=== PATIENT | female | born 1945 | race Caucasian/White ===

== ENCOUNTER 2019-05-08 17:38 | Emergency (ER) | payer MEDICARE, OTHER ==
[~2019-05-08] VITALS: Ht 160 cm; Wt 93.2 kg
[~2019-05-08 17:38] MED LIST: ADVAIR 100/501 DISK INH; ALBUTEROL0.63 MG/3 INH; BENADRYL25 MG PO; CARDIZEM30 MG PO; ELIQUIS2.5 MG PO; HYDROCODONE-APA1 TAB PO; KLONOPIN0.5 MG PO; LISINOPRIL10 MG PO; MULTIPLE VITAMI1 TA1 PO; NAPROSYN500 MG PO; NEURONTIN 400400 MG PO; OXYCODONE HCL5 MG PO; PROVENTIL HFA6.7 GM INH; PROVENTIL/2.5 MG/3 M INH; SYNTHROID150 MCG PO
[2019-05-08 17:42] VITALS: Ht 160 cm; Wt 93.2 kg
[2019-05-08] MEDS ORDERED: PLAVIX75 MG PO (17:45)
[2019-05-08] MEDS ORDERED: TRICOR145 MG PO (17:45)
[2019-05-08] MEDS ORDERED: LIPITOR40 MG PO (17:45)
[2019-05-08] MEDS ORDERED: BAYER CHEWABLE81 MG PO (17:45)
[2019-05-08] MEDS ORDERED: FISH OIL 1,0001 CA1 PO (17:46)
[2019-05-08] MEDS ORDERED: CO Q-10100 MG PO (17:46)
[2019-05-08 20:07] VITALS: BP 125/76
== END 2019-05-08 20:08 | disposition home or self-care (01) ==
LOC: D.ER 17:38
DX: S91.202A Unspecified open wound of left great toe with damage to nail, initial encounter (principal); X58.XXXA Exposure to other specified factors, initial encounter; Y93.89 Activity, other specified; Y92.89 Other specified places as the place of occurrence of the external cause

== ENCOUNTER → 2019-07-14 14:17 | Outpatient (CLI) | payer MEDICARE, OTHER ==
[2019-05-08 17:42] VITALS: BMI 36.3
[~2019-07-14 14:17] MED LIST changes: +ALBUTEROL2.5 MG/3 M INH; +ASCORBIC ACID500 MG PO; +ATARAX 25 MG TA25 MG PO; +ATROVENT 0.02%2.5 ML UPD; +BAYER CHEWABLE81 MG PO; +BUMEX2 MG PO; +CO Q-10100 MG PO; +DILTIAZEM 24HR240 M4 PO; +FISH OIL 1,0001 CA1 PO; +FLUTICASONE PRO16 GM NASAL; +HUMALOG 30100 UNITS/ SC; +KLOR-CON 1010 MEQ PO; +LANTUS SOL100 UNIT/1 SC; +LASIX40 MG PO; +LEVOXYL125 MCG PO; +LIPITOR40 MG PO; +MAGNESIUM OXID250 MG PO; +NEURONTIN600 MG PO; +PLAVIX75 MG PO; +SYMBICORT 80-10.2 GM INH; +TRICOR145 MG PO; +VITAMIN D31000 UNIT PO; +[UNRECOGNIZED DRUG - OTHER]
== END | disposition home or self-care (01) ==
LOC: D.HCCARDIO 14:00
PROVIDERS: ATTEND Internal Medicine Cardiovascular Disease
DX: I47.1 Supraventricular tachycardia (principal)

== ENCOUNTER 2019-07-20 16:33 | Emergency (ER) | payer MEDICARE, OTHER ==
[~2019-07-20] VITALS: Ht 160 cm; Wt 95.5 kg
[~2019-07-20 16:33] MED LIST changes: -ALBUTEROL2.5 MG/3 M INH; -ASCORBIC ACID500 MG PO; -ATARAX 25 MG TA25 MG PO; -ATROVENT 0.02%2.5 ML UPD; -BUMEX2 MG PO; -DILTIAZEM 24HR240 M4 PO; -FLUTICASONE PRO16 GM NASAL; -HUMALOG 30100 UNITS/ SC; -KLOR-CON 1010 MEQ PO; -LANTUS SOL100 UNIT/1 SC; -LASIX40 MG PO; -LEVOXYL125 MCG PO; -MAGNESIUM OXID250 MG PO; -NEURONTIN600 MG PO; -SYMBICORT 80-10.2 GM INH; -VITAMIN D31000 UNIT PO; -[UNRECOGNIZED DRUG - OTHER]
[2019-07-20 17:22] VITALS: Ht 160 cm; Wt 95.5 kg
[2019-07-20] MEDS ORDERED: ATARAX 25 MG TA25 MG PO (17:33)
[2019-07-20] MEDS ORDERED: CO Q-10100 MG PO (17:34)
[2019-07-20] MEDS ORDERED: LEVOXYL125 MCG PO (17:35)
[2019-07-20] MEDS ORDERED: KLOR-CON 1010 MEQ PO (17:36)
[2019-07-20] MEDS ORDERED: DILTIAZEM 24HR240 M4 PO (17:37)
[2019-07-20] MEDS ORDERED: LASIX40 MG PO (17:38)
[2019-07-20] MEDS ORDERED: NEURONTIN600 MG PO (17:38)
[2019-07-20] MEDS ORDERED: BENADRYL25 MG PO (17:39)
[2019-07-20] MEDS ORDERED: MAGNESIUM OXID250 MG PO (17:40)
[2019-07-20] MEDS ORDERED: VITAMIN D31000 UNIT PO (17:41)
[2019-07-20] MEDS ORDERED: ASCORBIC ACID500 MG PO (17:42)
[2019-07-20] MEDS ORDERED: [UNRECOGNIZED DRUG - OTHER] (17:42)
[2019-07-20] MEDS ORDERED: LANTUS SOL100 UNIT/1 SC ×2 (17:43)
[2019-07-20 18:02] LABS: BASOPHILS 0.8 % (0-2); EOSINOPHILS 5.3 % (0-7); HEMATOCRIT 38.2 % (36.0-48.0); HEMOGLOBIN 12.5 g/dL (12-16); IMMATURE GRANULOCYTES 0.3 % (0-5); LYMPHOCYTES 32.1 % (15-50); MCH 27.7 pg (26.0-34.0); MCHC 32.7 g/dL (31.0-37.0); MCV 84.5 fL (80.0-100.0); MEAN PLATELET VOLUME 10.9 fL (7.4-10.4); MONOCYTES 9.2 % (2-11); NEUTROPHILS 52.3 % (40-80); PLATELET COUNT 257 10x3/uL (130-400); RBC 4.52 10x6/uL (4.00-5.40); RDW 15.5 % (11.5-14.5); WBC 10.6 10x3/uL (4.8-10.8)
[2019-07-20 18:22] LABS: ALBUMIN 3.7 g/dL (3.4-5.0); ALKALINE PHOSPHATASE 93 U/L (46-116); ALT (SGPT) 30 U/L (10-68); BILIRUBIN - TOTAL 0.52 mg/dL (0.2-1.3); CALC OSMOLALITY 281 mosm/kg (275-300); CALCIUM 9.5 mg/dL (8.5-10.1); CARBON DIOXIDE 29.7 mmol/L (21.0-32.0); CHLORIDE - SERUM 100 mmol/L (98-107); CREATININE - SERUM 0.8 mg/dL (0.6-1.3); GLUCOSE 168 mg/dL (74-106); POTASSIUM - SERUM 3.6 mmol/L (3.5-5.1); PROTEIN - SERUM 7.4 g/dL (6.4-8.2); SODIUM 139 mmol/L (136-145); UREA NITROGEN 12 mg/dL (7-18); eGFR NON AFRICAN AMERICAN 75 mL/min (90-120)
[2019-07-20 18:24] LABS: APTT 23.7 SECONDS (22.8-39.4); PROTIME 12.7 SECONDS (11.6-15.0)
[2019-07-20 18:32] LABS: CKMB 0.9 U/L (0.0-3.6); CREATINE KINASE 160 UL (21-215); PRO BNP 136 pg/mL (0-125)
[2019-07-20 18:34] LABS: TROPONIN-I < 0.017 ng/mL (0.000-0.060)
[2019-07-20 19:42] VITALS: BP 114/54
== END 2019-07-20 19:42 | disposition home or self-care (01) ==
LOC: D.ER 16:33
PROVIDERS: Family Medicine
DX: R06.02 Shortness of breath (principal); R05 Cough; R53.1 Weakness

== ENCOUNTER 2019-07-30 13:49 | Emergency (ER) | payer MEDICARE, OTHER ==
[~2019-07-30] VITALS: Ht 160 cm; Wt 93.2 kg
[~2019-07-30 13:49] MED LIST changes: +ASCORBIC ACID500 MG PO; +ATARAX 25 MG TA25 MG PO; +DILTIAZEM 24HR240 M4 PO; +KLOR-CON 1010 MEQ PO; +LANTUS SOL100 UNIT/1 SC; +LASIX40 MG PO; +LEVOXYL125 MCG PO; +MAGNESIUM OXID250 MG PO; +NEURONTIN600 MG PO; +VITAMIN D31000 UNIT PO; +[UNRECOGNIZED DRUG - OTHER]
[2019-07-30 13:53] VITALS: Ht 160 cm; Wt 93.2 kg
[2019-07-30 14:23] LABS: BASOPHILS 0.4 % (0-2); EOSINOPHILS 5.9 % (0-7); HEMATOCRIT 38.9 % (36.0-48.0); HEMOGLOBIN 12.6 g/dL (12-16); IMMATURE GRANULOCYTES 0.4 % (0-5); LYMPHOCYTES 20.9 % (15-50); MCH 27.4 pg (26.0-34.0); MCHC 32.4 g/dL (31.0-37.0); MCV 84.6 fL (80.0-100.0); MEAN PLATELET VOLUME 10.6 fL (7.4-10.4); MONOCYTES 7.9 % (2-11); NEUTROPHILS 64.5 % (40-80); PLATELET COUNT 250 10x3/uL (130-400); RDW 15.6 % (11.5-14.5); WBC 10.3 10x3/uL (4.8-10.8)
[2019-07-30 14:36] LABS: ALBUMIN 3.7 g/dL (3.4-5.0); ALKALINE PHOSPHATASE 99 U/L (46-116); ALT (SGPT) 34 U/L (10-68); CALC OSMOLALITY 280 mosm/kg (275-300); CALCIUM 8.9 mg/dL (8.5-10.1); CARBON DIOXIDE 32.2 mmol/L (21.0-32.0); CHLORIDE - SERUM 102 mmol/L (98-107); CREATININE - SERUM 0.9 mg/dL (0.6-1.3); GLUCOSE 180 mg/dL (74-106); POTASSIUM - SERUM 3.8 mmol/L (3.5-5.1); PROTEIN - SERUM 7.5 g/dL (6.4-8.2); SODIUM 138 mmol/L (136-145); UREA NITROGEN 13 mg/dL (7-18); eGFR NON AFRICAN AMERICAN 65 mL/min (90-120)
[2019-07-30 14:44] LABS: APTT 23.4 SECONDS (22.8-39.4); INR 1.08 (0.85-1.17); PROTIME 13.5 SECONDS (11.6-15.0)
[2019-07-30 14:47] LABS: CKMB 0.6 U/L (0.0-3.6); CREATINE KINASE 123 UL (21-215); PRO BNP 44 pg/mL (0-125)
[2019-07-30 14:48] LABS: TROPONIN-I < 0.017 ng/mL (0.000-0.060)
[2019-07-30 18:45] VITALS: BP 129/68
== END 2019-07-30 18:54 | disposition home or self-care (01) ==
LOC: D.ER 13:49
PROVIDERS: Family Medicine
DX: J18.9 Pneumonia, unspecified organism (principal); I50.9 Heart failure, unspecified; J44.9 Chronic obstructive pulmonary disease, unspecified

== ENCOUNTER 2019-08-17 07:16 | Outpatient (CLI) | payer MEDICARE, OTHER ==
[~2019-08-17] VITALS: Ht 160 cm; Wt 94.1 kg
[2019-08-17 07:34] LABS: BASOPHILS 1.3 % (0-2); EOSINOPHILS 2.9 % (0-7); HEMATOCRIT 40.6 % (36.0-48.0); HEMOGLOBIN 12.9 g/dL (12-16); IMMATURE GRANULOCYTES 0.3 % (0-5); LYMPHOCYTES 31.4 % (15-50); MCH 27.5 pg (26.0-34.0); MCHC 31.8 g/dL (31.0-37.0); MCV 86.6 fL (80.0-100.0); MEAN PLATELET VOLUME 10.3 fL (7.4-10.4); MONOCYTES 8.9 % (2-11); NEUTROPHILS 55.2 % (40-80); PLATELET COUNT 271 10x3/uL (130-400); RBC 4.69 10x6/uL (4.00-5.40); RDW 15.5 % (11.5-14.5); WBC 9.3 10x3/uL (4.8-10.8)
[2019-08-17] MEDS ORDERED: BUMEX2 MG PO (07:59)
[2019-08-17 08:01] LABS: INR 0.98 (0.85-1.17); PROTIME 12.5 SECONDS (11.6-15.0)
[2019-08-17] MEDS ORDERED: FLUTICASONE PRO16 GM NASAL (08:06)
[2019-08-17] MEDS ORDERED: ATROVENT 0.02%2.5 ML UPD (08:07)
[2019-08-17] MEDS ORDERED: SYMBICORT 80-10.2 GM INH (08:07)
[2019-08-17] MEDS ORDERED: ALBUTEROL2.5 MG/3 M INH (08:08)
[2019-08-17] MEDS ORDERED: HUMALOG 30100 UNITS/ SC (08:09)
[2019-08-17 08:35] VITALS: BP 119/61; Ht 160 cm; Wt 94.1 kg
--- NOTE | 2019-08-17 13:13 | NUR ---
PT RESTING QUIETLY IN BED. DENIES PAIN/NEEDS AT THIS TIME. WILL BE ABLE TO GIVE HER SOMETHING TO DRINK AT 1330
--- NOTE | 2019-08-17 13:37 | NUR ---
PT VOIDED. ABLE TO TOLERATE WATER
--- NOTE | 2019-08-17 13:37 | NUR ---
PAGED DR. TANNER FOR DC ORDERS. WAITING FOR CALL BACK.
--- NOTE | 2019-08-17 13:53 | NUR ---
PT LEFT UNIT VIA WC AT 1353
[2019-08-17 15:23] LABS: EOS BF 4 %; MACROPHAGES BF 7 %; MESOTHELIALS BF 7 %; NEUT - BF 74 %
[2019-08-17 15:26] LABS: MACROPHAGES BF 32 %; MESOTHELIALS BF 24 %; NEUT - BF 35 %
[2019-08-18 18:08] LABS: AFB SPECIMEN PROCESSING Concentration (())
[2019-10-08 12:09] LABS: ACID FAST CULTURE Negative (()); ACID FAST SMEAR Negative (())
== END 2019-08-17 13:53 | disposition home or self-care (01) ==
LOC: D.OPS 07:16
PROVIDERS: ATTEND Internal Medicine Pulmonary Disease
DX: J20.9 Acute bronchitis, unspecified (principal); R94.2 Abnormal results of pulmonary function studies

== ENCOUNTER → 2019-08-31 08:56 | Outpatient (CLI) | payer MEDICARE, OTHER ==
[2019-08-17 08:35] VITALS: BMI 36.7
[~2019-08-31 08:56] MED LIST changes: +ALBUTEROL2.5 MG/3 M INH; +ATROVENT 0.02%2.5 ML UPD; +BUMEX2 MG PO; +FLUTICASONE PRO16 GM NASAL; +HUMALOG 30100 UNITS/ SC; +SYMBICORT 80-10.2 GM INH
[2019-09-02 12:09] LABS: PROCALCITONIN 0.06 ng/mL (0.00-0.08)
[2019-09-02 21:06] LABS: B PERTUSSIS - IGA 2.3 index (0.0-0.9); B PERTUSSIS - IGM <1.0 index (0.0-0.9)
== END | disposition home or self-care (01) ==
LOC: D.RT 08-18 08:00 → D.LAB 08-18 08:30 → D.RT 08:56
PROVIDERS: ATTEND Internal Medicine Pulmonary Disease
DX: J42 Unspecified chronic bronchitis (principal)

== ENCOUNTER → 2019-10-05 18:00 | Outpatient (CLI) | payer MEDICARE, OTHER ==
[2019-08-17 08:35] VITALS: BMI 36.7
[2019-10-05 18:35] LABS: CALC OSMOLALITY 283 mosm/kg (275-300); CALCIUM 9.4 mg/dL (8.5-10.1); CARBON DIOXIDE 30.1 mmol/L (21.0-32.0); CHLORIDE - SERUM 99 mmol/L (98-107); CREATININE - SERUM 0.7 mg/dL (0.6-1.3); POTASSIUM - SERUM 4.2 mmol/L (3.5-5.1); SODIUM 138 mmol/L (136-145); UREA NITROGEN 14 mg/dL (7-18); eGFR NON AFRICAN AMERICAN 87 mL/min (90-120)
[2019-10-05 18:40] LABS: GLUCOSE 230 mg/dL (74-106)
== END | disposition home or self-care (01) ==
LOC: D.LABREF 18:00
PROVIDERS: ATTEND Internal Medicine Cardiovascular Disease
DX: R60.9 Edema, unspecified (principal); I47.1 Supraventricular tachycardia

== ENCOUNTER → 2019-10-12 12:30 | Outpatient (CLI) | payer MEDICARE, OTHER ==
[2019-08-17 08:35] VITALS: BMI 36.7
== END | disposition home or self-care (01) ==
LOC: D.US 12:30
PROVIDERS: ATTEND Internal Medicine Cardiovascular Disease
DX: R42 Dizziness and giddiness (principal)

== ENCOUNTER → 2020-08-25 12:04 | Outpatient (CLI) | payer MEDICARE, OTHER ==
[2019-08-17 08:35] VITALS: BMI 36.7
== END | disposition home or self-care (01) ==
LOC: D.LAB 12:04
PROVIDERS: ATTEND Internal Medicine Pulmonary Disease
DX: Z11.59 Encounter for screening for other viral diseases (principal)

== ENCOUNTER → 2020-08-30 10:52 | Outpatient (CLI) | payer MEDICARE, OTHER ==
[2019-08-17 08:35] VITALS: BMI 36.7
== END | disposition home or self-care (01) ==
LOC: D.RT 08-08 13:00
PROVIDERS: ATTEND Internal Medicine Pulmonary Disease
DX: J44.9 Chronic obstructive pulmonary disease, unspecified (principal)